=== PATIENT | male | born 1985 | race Caucasian/White ===

== ENCOUNTER → 2018-12-29 | Outpatient (CLI) | payer BC, OTHER ==
[~2018-12-29] VITALS: Ht 177.8 cm; Wt 111.1 kg
[~2018-12-29] MED LIST: FLEXERIL PO; IBUPROFEN 800800 M1 PO; METHOCARBAMOL500 M2 PO; NORCO 7.5-3251 EACH PO
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
[2018-12-29 09:09] VITALS: BP 138/86
--- NOTE | 2018-12-29 09:24 | NUR ---
Pain Clinic Assessment: 1. History of Osteoarthritis: Not Applicable History of Rheumatoid Arthritis: Not Applicable 2. Height: 5 ft. 10 in. 177.8 cm. Weight: 245.0 lb. oz. 111.132 kg. Patient's BMI: 35.2 3. Vital Signs: BP: 138/86 Pulse: 61 Resp: 16 Temp: 02 Sat: 100 ECG Mon: 4. Pain Intensity: 4 5. Fall Risk: Dizziness: N Needs help standing or walking: N Fallen in the last 3 months: N Fall risk comments: 6. Patient on Blood Thinner: None 7. History of Hypertension: N 8. Opioid Therapy greater than 6 weeks: N Opiate Contract Signed: 9. Risk Assessment Tool Provided: 0-low 10. Functional Assessment Tool: 11. Recreational Drug Use: Never Drug Type: Tobacco Use: Never Smoker Tobacco Type: Amount or Packs/day: How Many Years: Alcohol Use: Yes Frequency: Daily Quant: 2 BEERS
--- NOTE | 2018-12-29 09:24 | NUR ---
ALERT - Henrik Score <= 18: Add Problem PRESSURE ULCER RISK to Patient's Care Plan
== END ==
LOC: PAIN 06:35
DX: M47.27 Other spondylosis with radiculopathy, lumbosacral region (principal); M51.16 Intervertebral disc disorders with radiculopathy, lumbar region; Z79.899 Other long term (current) drug therapy

== ENCOUNTER → 2018-12-31 | Outpatient (CLI) | payer BC, OTHER ==
[~2018-12-31] VITALS: Ht 177.8 cm; Wt 80.3 kg
[2018-12-31 08:31] VITALS: BP 121/71
--- NOTE | 2018-12-31 08:52 | NUR ---
Pain Clinic Assessment: 1. History of Osteoarthritis: Not Applicable History of Rheumatoid Arthritis: Not Applicable 2. Height: 5 ft. 10 in. 177.8 cm. Weight: 177.0 lb. oz. 80.287 kg. Patient's BMI: 25.4 3. Vital Signs: BP: 121/71 Pulse: 74 Resp: 16 Temp: 02 Sat: 100 ECG Mon: 4. Pain Intensity: 4-5 5. Fall Risk: Dizziness: N Needs help standing or walking: N Fallen in the last 3 months: N Fall risk comments: 6. Patient on Blood Thinner: None 7. History of Hypertension: N 8. Opioid Therapy greater than 6 weeks: N Opiate Contract Signed: 9. Risk Assessment Tool Provided: 0-low 10. Functional Assessment Tool: 11. Recreational Drug Use: Never Drug Type: Tobacco Use: Never Smoker Tobacco Type: Amount or Packs/day: How Many Years: Alcohol Use: Yes Frequency: Quant:
--- NOTE | 2019-01-06 12:15 | HPC ---
[address] [address] PAIN MANAGEMENT CONSULTATION Name: MIRTHA MINOR Room #: REG [facility]..#: [id number] Admission: 12/31/18 ������������������ Attend Phys: Talon Gomez DO Discharge: ������������������ Date of : [birth year] Report #: [id number] THIS REPORT FOR: //name// CC: Chas Gomez DATE OF SERVICE: 12/31/2018 CHIEF COMPLAINT: Low back pain, bilateral lower extremity pain with paresthesias. HISTORY OF PRESENT ILLNESS: As you know, the patient is a 33-year-old male who returns today in followup visit to undergo the first in a series of lumbar epidural injections under fluoroscopic guidance. We saw the patient in consultation on 12/29/2018. He was diagnosed with lumbar radiculopathy secondary to the displacement of lumbar intervertebral disk and lumbosacral spondylosis causing changes at the L5-S1 level significant enough that the patient had been referred to our clinic to trial epidural injections. We have received authorization for the patient to undergo the procedure today. He has been advised of the risks and the benefits of the procedure. He states he understood and wished to proceed. The patient is placing his current pain score 6/10. He returns today in followup visit to undergo first in a series of lumbar epidural injections. ALLERGIES: No known drug allergies. CURRENT MEDICATIONS: Hydrocodone/acetaminophen 7.5/325 one tab every eight hours p.r.n. for pain, methocarbamol 750 mg three times a day p.r.n., ibuprofen 800 mg three times a day. SOCIAL HISTORY: The patient denies current tobacco use. Denies IV or illicit drug use. Admits to two alcohol beverages per day. 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 He is working, not receiving workmen's compensation, unaccompanied today. IMAGING: No new imaging available. PHYSICAL EXAMINATION: GENERAL: Well-developed, well-nourished, well-hydrated 33-year-old male appearing stated age, pain is rated around 6/10. HEENT: Normocephalic, atraumatic. Pupils equal, round, reactive to light. EXTREMITIES: Show no clubbing, no cyanosis, and no edema. MUSCULOSKELETAL: Lower extremity strength is symmetrical 5/5. He is intact to light touch from L1 through S2 dermatomes. Seated straight leg raising negative. Supine straight leg raising positive on the right, approximately 70 degrees. Ankle clonus negative. Babinski is negative. Deep tendon reflexes [address] [address] PAIN MANAGEMENT CONSULTATION Name: MIRTHA MINOR Room #: REG [facility].#: [id number] Admission: 12/31/18 ������������������ Attend Phys: Talon Gomez DO Discharge: ������������������ Date of : [birth year] Report #: [id number] are symmetrical. ASSESSMENT: 1. Symptomatic lumbar radiculopathy. 2. Displacement of lumbar intervertebral disk with radiculopathy. 3. Lumbosacral spondylosis with radiculopathy. PLAN: 1. The patient returns today in followup visit to undergo lumbar epidural injection under fluoroscopic guidance. The patient has been advised risks and benefits of this procedure. These risks include but are not necessarily limited to bleeding, bruising, infection, worsening of pain, no relief of pain, also risk of temporary or permanent muscle weakness, temporary or permanent nerve damage, possible paralysis, post-dural puncture headache and . The patient states he understood and wished to proceed. 2. No medication changes made at today's visit. The patient will continue current medical therapy as previously prescribed. 3. We will see the patient back in followup visit in 31 days. At that time, review the efficacy of today's epidural injection and determine if next in the series of epidural injections are recommended. ��������������������������������������������� <ELECTRONICALLY SIGNED> ���������������������������������������� By: Talon Gomez DO ��������������������������������������������� 01/06/19 1215 0857 1227 Talon Gomez DO /nt
--- NOTE | 2019-01-06 12:16 | P ---
[facility] [place] [address] [address] [place] [address] PROCEDURE REPORT Name: MIRTHA MINOR Room #: REG [facility]#: [id number] Admission: 12/31/18 ������������������ Attend Phys: Talon Gomez DO Discharge: ������������������ Date of : [birth year] Report #: [id number] THIS REPORT FOR: //name// CC: Chas Gomez DATE OF SERVICE: 12/31/2018 DESCRIPTION OF PROCEDURE: L5-S1 interlaminar epidural steroid injection under fluoroscopic guidance. This is the first procedure of the first series that the patient is undergoing. After obtaining written consent, the patient was taken back to the fluoroscopy suite, placed in a prone position with pillow under the abdomen to decrease lumbar lordosis. The skin overlying the lumbosacral area was then prepped and draped in aseptic fashion. The L5-S1 vertebral interspace was then identified by AP fluoroscopy. The skin and subcutaneous tissue overlying the target site of injection was anesthetized with 3 mL 1% lidocaine. A 20-gauge 3-1/2-inch Tuohy needle was then advanced under fluoroscopic guidance towards the epidural space using a midline approach. The epidural space was identified using loss of resistance to air technique. After negative aspiration for heme or cerebrospinal fluid, a total of 1 mL of Omnipaque was injected. A lumbar epidurogram was confirmed using both AP and lateral fluoroscopy. After negative aspiration for heme or cerebrospinal fluid, 5 mL of a solution containing 2 mL 40 mg per mL, 80 mg total triamcinolone, 3 mL lidocaine 1% was injected in increments. Contrast spread was noted posterior epidural space. The needle was then retracted approximately half way and needle tract flushed with 1 mL of 1% lidocaine. Needle was then removed. There were no apparent sensory or motor deficits in the lower extremity following the procedure. A sterile bandage was placed over the injection site. The heart rate, pulse, oximetry and blood pressure were continuously monitored after the procedure. There were no apparent complications. The patient tolerated the procedure well and was carefully escorted to the recovery room in stable condition. There were no apparent complications. After meeting discharge criteria, the patient was then discharged home. ��������������������������������������������� <ELECTRONICALLY SIGNED> ���������������������������������������� By: Talon Gomez DO ��������������������������������������������� 01/06/19 1216 0857 1232 Talon Gomez DO /nt
== END | disposition home or self-care (01) ==
LOC: PAIN 06:41
DX: M51.16 Intervertebral disc disorders with radiculopathy, lumbar region (principal); M47.27 Other spondylosis with radiculopathy, lumbosacral region; Z79.899 Other long term (current) drug therapy

== ENCOUNTER → 2019-01-12 | Outpatient (CLI) | payer BC, OTHER ==
[~2019-01-12] VITALS: Ht 175.3 cm; Wt 110.7 kg
[~2019-01-12] MED LIST changes: +NABUMETONE 500500 M1 PO
[2019-01-12 08:08] VITALS: BP 168/83
--- NOTE | 2019-01-12 08:10 | NUR ---
Pain Clinic Assessment: 1. History of Osteoarthritis: Not Applicable History of Rheumatoid Arthritis: Not Applicable 2. Height: 5 ft. 9 in. 175.3 cm. Weight: 244.0 lb. oz. 110.678 kg. Patient's BMI: 36.0 3. Vital Signs: BP: 168/83 Pulse: 66 Resp: 18 Temp: 02 Sat: 98 ECG Mon: 4. Pain Intensity: 3-4 5. Fall Risk: Dizziness: N Needs help standing or walking: N Fallen in the last 3 months: N Fall risk comments: 6. Patient on Blood Thinner: None 7. History of Hypertension: N 8. Opioid Therapy greater than 6 weeks: N Opiate Contract Signed: 9. Risk Assessment Tool Provided: 0-low 10. Functional Assessment Tool: 11. Recreational Drug Use: Never Drug Type: Tobacco Use: Never Smoker Tobacco Type: Amount or Packs/day: How Many Years: Alcohol Use: Yes Frequency: Daily Quant: 2
--- NOTE | 2019-01-19 13:03 | HPC ---
[facility] [place] [address] PAIN MANAGEMENT CONSULTATION Name: MINORMIRTHA Room #: REG [facility].#: [id number] Admission: 01/12/19 ������������������ Attend Phys: Talon Gomez DO Discharge: ������������������ Date of : 87 Report #: [id number] THIS REPORT FOR: //name// CC: Chas Martini DATE OF SERVICE: 01/12/2019 REFERRING PHYSICIAN: Chas Sullivan DO. CHIEF COMPLAINT: Low back pain, bilateral lower extremity pain and paresthesias. HISTORY OF PRESENT ILLNESS: As you know, the patient is a very pleasant 33-year-old male who returns today in followup visit having undergone the first in a series of lumbar epidural injections under fluoroscopic guidance. He is placing pain score today at 3-4/10. He reports 40% to 50% improvement in overall pain that was ongoing after the previous epidural injection. He continues to experience discomfort that he describes as aching, sharp, pulling in sensation, exacerbated with sitting and improves with lying down and previous epidural injection. He has undergone imaging study which does show a grade 1 anterolisthesis at L5-S1, with no central canal stenosis. There is a circumferential annular disk bulge, annular tear and foraminal narrowing noted at this level. He did very well with the initial epidural injection, returning today in followup visit to discuss the possible next in the series of epidural injections. The patient has an established appointment to potentially undergo the next in the series of epidural injections per his third libertarian payer request 31 days from the initial epidural injection provided 12/31/2018. He is planning to undergo the epidural injection at that 31-day jaleesa, which is the earliest the patient can undergo next in the series. He returns today for possible adjustments in medication management. ALLERGIES: No known drug allergies. CURRENT MEDICATIONS: Methocarbamol 500 mg 3 times a day and ibuprofen 800 mg t.i.d. SOCIAL HISTORY: The patient denies current tobacco use. Denies IV or illicit drug use. Admits to occasional alcoholic beverage. 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 IMAGING DATA: No new imaging available. [address] [address] PAIN MANAGEMENT CONSULTATION Name: MIRTHA MINOR Room #: REG [facility].#: [id number] Admission: 01/12/19 ������������������ Attend Phys: Talon Gomez DO Discharge: ������������������ Date of : [birth year] Report #: [id number] PHYSICAL EXAMINATION: VITAL SIGNS: Blood pressure 160/83, pulse 66, respiratory rate 18 and unlabored. The patient is 98% on room air. Height 5 feet 9 inches tall, weight 244 pounds and BMI calculated 36. GENERAL: Well-developed, well-nourished, well-hydrated and exogenously obese 33-year-old male appearing stated age, pain is rated today at 3-4/10. HEENT: He is normocephalic, atraumatic. Pupils equal, round and reactive to light. Extraocular muscles are intact. EXTREMITIES: Show no clubbing, no cyanosis and no edema. MUSCULOSKELETAL: Lower extremity strength appears symmetrical, 5/5. Muscle bulk and tone equal and symmetrical. Seated straight leg raising negative. Supine straight leg raising remains positive on the right at approximately 70 degrees. Ankle clonus negative. Babinski is negative. Deep tendon reflexes remain symmetrical, 2+/4 patella and Achilles. The patient is able to sit today without difficulty. This was not possible at the last visit. Arising from a seated position causes no change in overall pain. ASSESSMENT: 1. Symptomatic lumbar radiculopathy. 2. Displacement of lumbar intervertebral disk with radiculopathy. 3. Lumbosacral spondylosis with radiculopathy. PLAN: 1. The patient returns today in followup visit indicating a 40% to 50% improvement in overall pain with previous epidural injection. He has ongoing pain relief. He has been able to participate in more of these daily activities than prior to the injection. He is now able to sit more comfortably, which he was unable to do prior to the epidural injection. He has also been able to participate in work activities to a greater degree, which he was unable to do prior to the injection. He is pleased with response to this injection, returning today to discuss scheduling the next in the series of epidural injections. I have advised the patient that due to third libertarian payer restrictions, he cannot undergo next in the series of epidural injections until 31 days or greater have passed and he shows continued improvement with the injection. He will make an appointment back with our clinic in approximately 31 days after the initial injection of 12/31/2018 to undergo next in the series. 2. The patient and I discussed making changes in medication management today to address ongoing issues. He is having some difficulty with his ibuprofen therapy and we will make adjustments in that medication in hopes of providing better pain control. We also discussed initiation of neuropathic medications at this visit. 3. The patient was provided a prescription of nabumetone 500 mg dose, 1 tab p.o. t.i.d. I advised the patient to watch for dyspepsia, worsening of blood pressure or lower extremity edema with the use of the therapy. He will discontinue all other nonsteroidal anti-inflammatories in favor of this medication. He can use Tylenol if necessary for breakthrough pain. [facility] [address] [place] [address] PAIN MANAGEMENT CONSULTATION Name: MIRTHA MINOR Room #: REG [facility]#: [id number] Admission: 01/12/19 ������������������ Attend Phys: Talon Gomez DO Discharge: ������������������ Date of : 87 Report #: [id number] 4. We discussed possibly initiating therapy with neuropathic pain medications, gabapentin, nortriptyline, amitriptyline, Lyrica, Cymbalta, and/or the sodium channel blockers. At this point, the patient does not want to initiate any long-term medication therapy. He wishes to determine if the injection will provide good improvement. He feels that if he continues to participate in light activities at work, which he is able to do at this time, he maintains the efficacy from the initial injection and the medications provide some improvement, he should do well enough to reach the 31-day jaleesa. I have advised the patient if this is not the case, contact our clinic. 5. We will see the patient back in followup visit once we have achieved authorization for the next in the series of lumbar epidural injections. We have made the patient a tentative appointment to follow up with our clinic for the next in the series of epidural injections after a 31-day jaleesa to address potential ongoing lumbar radicular symptoms. ��������������������������������������������� <ELECTRONICALLY SIGNED> ���������������������������������������� By: Talon Gomez DO ��������������������������������������������� 01/19/19 1303 [id number] Talon Gomez DO /sherry
== END ==
LOC: PAIN 06:42
DX: M51.16 Intervertebral disc disorders with radiculopathy, lumbar region (principal); M47.27 Other spondylosis with radiculopathy, lumbosacral region; Z79.899 Other long term (current) drug therapy

== ENCOUNTER → 2019-02-02 | Outpatient (CLI) | payer BC, OTHER ==
[~2019-02-02] VITALS: Ht 175.3 cm; Wt 111.6 kg
[~2019-02-02] MED LIST changes: +HYDROCODON-ACE1 EAC7 PO
--- NOTE | ~2019-02-02 | HPC ---
[facility] [place] [address] PAIN MANAGEMENT CONSULTATION Name: MIRTHA MINOR [id number] Admission: 02/02/19 ������������������ Attend Phys: Talon Gomez DO Discharge: ������������������ Date of : 87 Report #: [id number] THIS REPORT FOR: //name// CC: Chas Martini DATE OF SERVICE: 02/02/2019 REFERRING PHYSICIAN: Talon Hicks D.O. PRIMARY CARE PHYSICIAN: Chas Sullivan D.O. CHIEF COMPLAINT: Low back pain and bilateral lower extremity pain with paresthesias. HISTORY OF PRESENT ILLNESS: As you know, the patient is a pleasant 33-year-old male who follows up today at our clinic requesting next in a series of lumbar epidural injections. He reports now that his pain has returned to its normal baseline. He is now placing pain score 3-4/10. He states his pain is aching, sharp and pulling exacerbated with standing, walking, improves with lying down, heat and medications as well as epidural injections. He returns today to undergo next in the series of lumbar epidural injections in hopes of building on success of previous intervention. He also wishes to discuss other options for treatment. We have received authorization for the patient to undergo next in the series of epidural injections and thus he has returned today to undergo this procedure. ALLERGIES: No known drug allergies. CURRENT MEDICATIONS: Methocarbamol 500 mg t.i.d. and Motrin 800 mg t.i.d. SOCIAL HISTORY: The patient denies current tobacco use. Denies IV or illicit drug use. Admits to occasional alcohol, beverage. 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 He is unaccompanied today. IMAGING DATA: There is no new imaging available. PHYSICAL EXAMINATION: VITAL SIGNS: Blood pressure 143/85, pulse is 67, respiratory rate 16 and unlabored and the patient 99% on room air. Height 5 feet 9 inches tall, weight 246 pounds and BMI calculated 36.3. GENERAL: Well-developed, well-nourished, well-hydrated exogenously obese 33-year-old male appearing stated age, pain is rated around 3-4/10. HEENT: Normocephalic and atraumatic. Pupils equal, round and reactive to [facility] [address] [place] [address] PAIN MANAGEMENT CONSULTATION Name: MIRTHA MINOR Room #: REG [facility].#: [id number] Admission: 02/02/19 ������������������ Attend Phys: Talon Gomez DO Discharge: ������������������ Date of : 87 Report #: [id number] light. EXTREMITIES: Show no clubbing, no cyanosis and no edema. MUSCULOSKELETAL: Lower extremity strength is equal and symmetrical 5/5. Muscle bulk and tone equal and symmetrical in comparing left lower extremity to right. Seated straight leg raising negative. Supine straight leg raising positive on the right. Dulce Maria's test negative. Modified Gaenslen's positive for axial low back pain. ASSESSMENT: 1. Symptomatic lumbar radiculopathy. 2. Displacement of a lumbar intervertebral disk with radiculopathy. 3. Lumbosacral spondylosis with radiculopathy. PLAN: 1. The patient returns today in followup visit to undergo next in the series of lumbar epidural injections under fluoroscopic guidance. The patient is hopeful to see improvement in his pain as he is seen with the initial injection but for a more prolonged period of time. The patient was advised risks and benefits of procedure, states understood and wished to proceed. 2. No medication changes made at today's visit. We did provide the patient with a short dosing of hydrocodone 5/325 one tab p.o. q. 8 hours p.r.n. for pain, #60 tablets. We have advised the patient to only take the medication when pain is intolerable, not to rely on the medication prophylactically. This prescription is a temporizing treatment option is not going to be a long-term therapy. We will not be keeping this patient on long-term opioid medication as it is noted to be ineffective for long-term treatment for neuropathic pain secondary to lumbar radiculopathy. He was advised of such today. 3. The patient will return to our clinic on an as needed basis for possible next in a series of lumbar epidural injections. If the patient does not note improvement with this epidural injection for a prolonged period of time, he will follow up with his PCP for possible referral to Neurosurgery. DESCRIPTION OF PROCEDURE: L5-S1 intralaminar epidural steroid injection under fluoroscopic guidance. This is the second procedure of the first series that the patient is undergoing. After obtaining written consent, the patient was taken back to the fluoroscopy suite, placed in a prone position with pillow under the abdomen to decrease lumbar lordosis. The skin overlying the lumbosacral area was then prepped and draped in aseptic fashion. The L5-S1 vertebral interspace was then identified by AP fluoroscopy. The skin and subcutaneous tissue overlying the target site of injection was anesthetized with 3 mL 1% lidocaine. A 20-gauge 3-1/2 inch Tuohy needle was then advanced under fluoroscopic guidance towards the epidural space using a midline approach. The epidural space was [address] [address] PAIN MANAGEMENT CONSULTATION Name: MIRTHA MINOR Room #: REG [facility]#: [id number] Admission: 02/02/19 ������������������ Attend Phys: Talon Gomez DO Discharge: ������������������ Date of : 87 Report #: [id number] identified using loss of resistance to air technique. After negative aspiration for heme or cerebrospinal fluid, a total of 1 mL of Omnipaque was injected. A lumbar epidurogram was confirmed using both AP and lateral fluoroscopy. After negative aspiration for heme or cerebrospinal fluid, 5 mL of a solution containing 2 mL 40 mg per mL, 80 mg total triamcinolone, 3 mL lidocaine 1% was injected in increments. Contrast spread was noted posterior epidural space. The needle was then retracted approximately half way and needle tract flushed with 1 mL of 1% lidocaine. Needle was then removed. There were no apparent sensory or motor deficits in the lower extremity following the procedure. A sterile bandage was placed over the injection site. The heart rate, pulse, oximetry and blood pressure were continuously monitored after the procedure. There were no apparent complications. The patient tolerated the procedure well and was carefully escorted to the recovery room in stable condition. There were no apparent complications. After meeting discharge criteria, the patient was then discharged home. ��������������������������������������������� ���������������������������������������� By: ��������������������������������������������� [id number] Talon Gomez DO /nt
[2019-02-02 08:06] VITALS: BP 143/85
--- NOTE | 2019-02-02 08:12 | NUR ---
Pain Clinic Assessment: 1. History of Osteoarthritis: Not Applicable History of Rheumatoid Arthritis: Not Applicable 2. Height: 5 ft. 9 in. 175.3 cm. Weight: 246.0 lb. oz. 111.585 kg. Patient's BMI: 36.3 3. Vital Signs: BP: 143/85 Pulse: 67 Resp: 16 Temp: 02 Sat: 99 ECG Mon: 4. Pain Intensity: 3-4 5. Fall Risk: Dizziness: N Needs help standing or walking: N Fallen in the last 3 months: N Fall risk comments: 6. Patient on Blood Thinner: None 7. History of Hypertension: N 8. Opioid Therapy greater than 6 weeks: N Opiate Contract Signed: 9. Risk Assessment Tool Provided: 0-low 10. Functional Assessment Tool: 11. Recreational Drug Use: Never Drug Type: Tobacco Use: Never Smoker Tobacco Type: Amount or Packs/day: How Many Years: Alcohol Use: Yes Frequency: Daily Quant: 2-3
== END | disposition home or self-care (01) ==
LOC: PAIN 07:47
DX: M51.16 Intervertebral disc disorders with radiculopathy, lumbar region (principal); G89.29 Other chronic pain; M47.27 Other spondylosis with radiculopathy, lumbosacral region; Z79.891 Long term (current) use of opiate analgesic

== ENCOUNTER → 2019-03-09 | Outpatient (CLI) | payer BC, OTHER ==
[~2019-03-09] VITALS: Ht 177.8 cm; Wt 110.5 kg
[2019-03-09 08:12] VITALS: BP 136/81
--- NOTE | 2019-03-09 08:21 | NUR ---
Pain Clinic Assessment: 1. History of Osteoarthritis: Not Applicable History of Rheumatoid Arthritis: Not Applicable 2. Height: 5 ft. 10 in. 177.8 cm. Weight: 243.6 lb. oz. 110.496 kg. Patient's BMI: 35.0 3. Vital Signs: BP: 136/81 Pulse: 70 Resp: 16 Temp: 02 Sat: 100 ECG Mon: 4. Pain Intensity: 5-6 5. Fall Risk: Dizziness: N Needs help standing or walking: N Fallen in the last 3 months: N Fall risk comments: 6. Patient on Blood Thinner: None 7. History of Hypertension: N 8. Opioid Therapy greater than 6 weeks: N Opiate Contract Signed: 9. Risk Assessment Tool Provided: 0-low 10. Functional Assessment Tool: 11. Recreational Drug Use: Never Drug Type: Tobacco Use: Never Smoker Tobacco Type: Amount or Packs/day: How Many Years: Alcohol Use: Yes Frequency: Quant:
--- NOTE | 2019-03-09 12:28 | HPC ---
[facility] [place] [address] PAIN MANAGEMENT CONSULTATION Name: MIRTHA MINOR Room #: REG [facility] MCarina.#: [id number] Admission: 03/09/19 Attend Phys: Talon Gomez DO Discharge: Date of : 87 Report #: [id number] THIS REPORT FOR: //name// CC: Talon Martini DATE OF SERVICE: 03/09/2019 CHIEF COMPLAINT: Low back pain, bilateral lower extremity pain with paresthesias. HISTORY OF PRESENT ILLNESS: As you know, the patient is a very pleasant 33-year-old male returning in followup visit to undergo next in the series of lumbar epidural injections under fluoroscopic guidance. The patient reports 50% improvement in overall pain with previous epidural injection, but unfortunately his symptoms have begun to return now. He is placing pain score at 5-6/10. The patient denies any new injury or trauma that may have led to symptom reoccurrence. He states that he has been able to return to some of the activities of daily living, but his pain has intensified with those activities. He returns to undergo next in the series of epidural injections. He also reports that he has an appointment with Neurosurgery on 04/07/2019 to discuss surgical options to address the findings at the L5-S1 level, likely the source of the patient's symptoms based on the recent studies and distribution of pain. The patient returns to undergo next in the series of lumbar epidural injections. He is also requesting refill of his medications for which he is taking no more than 2 tablets of hydrocodone per day for pain control, unrelieved by the epidurals. ALLERGIES: No known drug allergies. CURRENT MEDICATIONS: Ibuprofen 800 mg t.i.d., hydrocodone 5/325 one tab p.o. q. 8 hours p.r.n. for pain. SOCIAL HISTORY: The patient denies current tobacco use. Denies IV or illicit drug use. Admits occasional alcohol beverage. He is employed, working, not receiving workmen's compensation, unaccompanied today. IMAGING: No new imaging available. PHYSICAL EXAMINATION: VITAL SIGNS: Blood pressure 136/81, pulse 70, respiratory rate 16 and unlabored. The patient is 100% on room air. Height 5 feet 10 inches tall, weight 243.6 pounds, BMI calculated at 35.0. GENERAL: Well-developed, well-nourished, well-hydrated exogenously obese 33-year-old male appearing stated age, pain is rated today at 5-6/10. [address] [address] PAIN MANAGEMENT CONSULTATION Name: MIRTHA MINOR Room #: [facility].#: [id number] Admission: 03/09/19 Attend Phys: Talon Gomez DO Discharge: Date of : 86 Report #: [id number] HEENT: Normocephalic, atraumatic. Pupils equal, round, reactive to light. Extraocular muscles are intact. EXTREMITIES: Show no clubbing, no cyanosis, and no edema. MUSCULOSKELETAL: Lower extremity strength is symmetrical again today 5/5. Muscle bulk and tone is equal and symmetrical in comparing left lower extremity to right. Seated straight leg raising remains negative. Supine straight leg raising positive. Dulce Maria's test negative. Modified Gaenslen's positive for axial low back pain. Lumbar provocation testing is met with increasing pain that is axial in nature. No radiation of symptoms. Gait mildly antalgic. Stance is slightly forward flexed lumbar spine, loss of lordotic curvature. Ankle clonus negative. Babinski is negative. ASSESSMENT: 1. Symptomatic lumbar radiculopathy. 2. Displacement of lumbar intervertebral disk with radiculopathy. 3. Lumbosacral spondylosis with radiculopathy. 4. Chronic intractable pain. PLAN: 1. The patient returns today in followup visit to undergo a lumbar epidural injection under fluoroscopic guidance in hopes of improving pain further. The patient has been advised of the risks and the benefits of a lumbar epidural injection. These risks include but are not necessarily limited to bleeding, bruising, infection, worsening pain, no relief of pain, also risk of temporary or permanent muscle weakness, temporary or permanent nerve damage, possible paralysis, post-dural puncture headache and . The patient states understood and wished to proceed. 2. We reviewed the fact that opiate medications are being used to provide analgesia adequate to support activities of daily living, not attempting to achieve a specific pain score on the 0-10 Visual Analog Scale. The current opiate medications are providing sufficient analgesia to allow the patient to participate in activities of daily living. The patient is not exhibiting any aberrant behavior suggestive of drug diversion. The patient is not having any adverse reactions to medications. The patient is not suffering from daytime somnolence or mental acuity changes. The patient is managing opiate-induced constipation with appropriate bcax-fxh-ghjsyeu agents and dietary considerations. The patient was counseled on concern for caution with operating a motor vehicle while using opiate medications. A physical exam was performed and the patient's functional status was evaluated. All patients with back pain were advised against the bed rest greater than 4 days and were advised to return to normal activities. Pain score assessment was noted and the treatment plan was reviewed with the patient. All current medications, both prescribed and OTC were reviewed and reconciled on the electronic medical record. Tobacco screening was accomplished and smoking cessation was advised when indicated. BMI was noted and diet/exercise [facility] [address] [place] [address] PAIN MANAGEMENT CONSULTATION Name: MIRTHA MINOR Room #: REG LE[facility] Ana.#: [id number] Admission: 03/09/19 Attend Phys: Talon Gomez DO Discharge: Date of : 86 Report #: [id number] modification was recommended for all patients following outside normal parameters. I reviewed with the patient today their responsibilities to safeguard prescription medications, reviewed their responsibility to utilize medications only as prescribed by the physician. They are to seek and receive pain medications only from 1 physician group ( [facility]). They are to use 1 pharmacy and keep the clinic informed if they change pharmacies. Their responsibilities include making followup visits in a timely fashion and to avoid abrupt discontinuation of medication usage. Their responsibilities further include bringing their medications (bottles from the pharmacy with residual pills) to the visit for possible confirmation of pill counts and the patient understands it is their responsibility to submit to random drug screens to ensure both that the medications prescribed are present, and that no other controlled substances are present. All prescriptions provided today were generated electronically. 3. The patient was provided a prescription of hydrocodone 5/325 one tab p.o. q. 8 hours p.r.n. for pain. I have given the patient #60 tablets with no refills. The patient was advised to take the medication only as directed. He is not to take the medication prophylactically. He has been utilizing the medication over the last month in an appropriate fashion. He does not run low with the medications nor is he called for early refills. He appears to be utilizing medication as directed. 4. We will see the patient back in followup visit on an as needed basis for possible next in the series of epidural injections or to discuss other treatment options. We did advise the patient would be more than willing to discuss his case further with Neurosurgery if they request any further treatment considerations. We will see him back in followup visit for medication management when necessary and epidural injections when needed. PROCEDURE NOTE DESCRIPTION OF PROCEDURE: L5-S1 interlaminar epidural steroid injection under fluoroscopic guidance. This is the third procedure of the first series that the patient is undergoing. After obtaining written consent, the patient was taken back to the fluoroscopy suite, placed in a prone position with pillow under the abdomen to decrease lumbar lordosis. The skin overlying the lumbosacral area was then prepped and draped in aseptic fashion. The L5-S1 vertebral interspace was then identified by AP fluoroscopy. The skin and subcutaneous tissue overlying the target site of injection was anesthetized with 3 mL 1% lidocaine. A 20-gauge 3-1/2 inch Tuohy needle was then advanced [place] [address] PAIN MANAGEMENT CONSULTATION Name: MIRTHA MINOR Room #: REG LEA Piper#: [id number] Admission: 03/09/19 Attend Phys: Talon Gomez DO Discharge: Date of : 86 Report #: [id number] towards the epidural space using a paramedian approach. The epidural space was identified using loss of resistance to air technique. After negative aspiration for heme or cerebrospinal fluid, a total of 1 mL of Omnipaque was injected. A lumbar epidurogram was confirmed using both AP and lateral fluoroscopy. After negative aspiration for heme or cerebrospinal fluid, 5 mL of a solution containing 1 mL, 80 mg/mL, 80 mg Depo-Medrol, 1 mL of 40 mg/mL, 40 mg total triamcinolone and 3 mL of lidocaine 1% was injected in increments. Contrast spread was noted posterior epidural space. The needle was then retracted approximately half way and needle tract flushed with 1 mL of 1% lidocaine. Needle was then removed. There were no apparent sensory or motor deficits in the lower extremity following the procedure. A sterile bandage was placed over the injection site. The heart rate, pulse, oximetry and blood pressure were continuously monitored after the procedure. There were no apparent complications. The patient tolerated the procedure well and was carefully escorted to the recovery room in stable condition. There were no apparent complications. After meeting discharge criteria, the patient was then discharged home. <ELECTRONICALLY SIGNED> By: Talon Gomez DO 03/09/19 1228 [id number] 1112 Talon Gomez DO /nt
== END | disposition home or self-care (01) ==
LOC: PAIN 06:45
DX: M51.16 Intervertebral disc disorders with radiculopathy, lumbar region (principal); M47.27 Other spondylosis with radiculopathy, lumbosacral region; G89.29 Other chronic pain; Z79.891 Long term (current) use of opiate analgesic; Z98.890 Other specified postprocedural states; Z79.899 Other long term (current) drug therapy

== ENCOUNTER → 2019-05-18 | Outpatient (CLI) | payer BC, OTHER ==
[~2019-05-18] VITALS: Ht 175.3 cm; Wt 109.8 kg
[~2019-05-18] MED LIST changes: +BUPRENORPHINE HC2 MG PO; +ROXICODONE5 MG PO
[2019-05-18 08:12] VITALS: BP 134/84
--- NOTE | 2019-05-18 08:24 | NUR ---
Pain Clinic Assessment: 1. History of Osteoarthritis: Not Applicable History of Rheumatoid Arthritis: Not Applicable 2. Height: 5 ft. 9 in. 175.3 cm. Weight: 242.0 lb. oz. 109.771 kg. Patient's BMI: 35.7 3. Vital Signs: BP: 134/84 Pulse: 76 Resp: 16 Temp: 02 Sat: 100 ECG Mon: 4. Pain Intensity: 5-6 5. Fall Risk: Dizziness: N Needs help standing or walking: N Fallen in the last 3 months: Y Fall risk comments: 6. Patient on Blood Thinner: None 7. History of Hypertension: N 8. Opioid Therapy greater than 6 weeks: N Opiate Contract Signed: 9. Risk Assessment Tool Provided: 0-low 10. Functional Assessment Tool: 11. Recreational Drug Use: Never Drug Type: Tobacco Use: Never Smoker Tobacco Type: Amount or Packs/day: How Many Years: Alcohol Use: Yes Frequency: Quant:
--- NOTE | 2019-05-25 12:48 | HPC ---
[facility] [place] [address] PAIN MANAGEMENT CONSULTATION Name: MIRTHA MINOR Room #: REG [facility]..#: [id number] Admission: 05/18/19 Attend Phys: Talon Gomez DO Discharge: Date of : 86 Report #: [id number] THIS REPORT FOR: //name// CC: Chas Nate DO Talon Hicks DO Talon Goemz DATE OF SERVICE: 05/18/2019 REFERRING PHYSICIAN: Dr. Talon Hicks CHIEF COMPLAINT: Low back pain, bilateral lower extremity pain and paresthesias, left greater than right. HISTORY OF PRESENT ILLNESS: As you know, the patient is a pleasant 33-year-old male who returns today in followup visit to discuss treatment options. He recently saw nurse practitioner, Jo Ann Perez at [facility] for his lumbar radiculopathy. He was referred back to our clinic to discuss intra-articular facet injections for axial back pain. The patient indicates he is not experiencing any axial back pain. He is experiencing pain that is radiating down his leg, making it impossible for him to go about his activities of daily living. He has undergone epidural injections under fluoroscopic guidance x 3 with improvement in symptoms with each injection, but unfortunately return of pain. He returns to discuss options for treatment. ALLERGIES: No known drug allergies. CURRENT MEDICATIONS: Hydrocodone 5/325 one tab every 8 hours p.r.n. for pain. SOCIAL HISTORY: The patient denies tobacco, IV or illicit drug use. He is . He has 2 children. 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 He is unaccompanied at today's visit. IMAGING: No new imaging available. PHYSICAL EXAMINATION: VITAL SIGNS: Blood pressure 134/84, pulse 76, respiratory rate 16 and unlabored. The patient is 100% on room air. Height 5 feet 9 inches tall, weight 242 pounds, BMI calculated 35.7. GENERAL: Well-developed, well-nourished, well-hydrated 33-year-old male appearing stated age, pain is rated today 5-6/10. HEENT: Normocephalic, atraumatic. Pupils equal, round, reactive to light. Extraocular muscles are intact. Sclerae nonicteric without injection. NEUROLOGIC: Cranial nerves 2-12 grossly intact. Speech fluent. The patient deemed a good historian. [address] [address] PAIN MANAGEMENT CONSULTATION Name: MIRTHA MINOR Room #: REG CLI [facility]#: [id number] Admission: 05/18/19 Attend Phys: Talon Gomez DO Discharge: Date of : 86 Report #: [id number] LUNGS: Clear, no wheeze, rhonchi or rales. CARDIOVASCULAR: Regular. No appreciable gallop, no rub. ABDOMEN: Soft, nontender, nondistended, normoactive bowel sounds. EXTREMITIES: Show no clubbing, no cyanosis, no edema. MUSCULOSKELETAL: Lower extremity strength is symmetrical 5/5, intact to light touch from L1 through S2 dermatomes. Deep tendon reflexes are symmetrical, 2+/4 bilaterally at patella and Achilles. Ankle clonus negative. Babinski is negative. Seated straight leg raising is negative. Supine straight leg raising remains positive on the right. Dulce Maria's test negative. Modified Gaenslen's positive for axial low back pain. ASSESSMENT: 1. Symptomatic lumbar radiculopathy. 2. Displacement of a lumbar intervertebral disk with radiculopathy. 3. Lumbosacral spondylosis with radiculopathy. 4. Chronic intractable pain. PLAN: 1. The patient returns today in followup visit to discuss the re-referral back to our clinic to undergo intra-articular facet injections. At this time, the patient is experiencing no axial back pain issues that would be consistent with facet arthropathy pain. We have discussed with the patient that we will contact Dr. Booth's office directly to determine the reasoning for the request of intra-articular facet injections. There is a possibility that he is being considered for an ALIF procedure, which would require facet injections to determine whether or not the patient can tolerate this procedure as it does tend to load the facet joints after the ALIF procedure, improving the lumbar radicular symptoms, but it may exacerbate any underlying facet arthropathy pain. I wish to confirm this with the neurosurgery team before I have the patient undergo a procedure in an area that his pain is not present. We will take the liberty of contacting Dr. Booth's office for the patient and will keep him apprised of the proposed treatment options. 2. We have agreed to continue the patient on opioid medication. We will move from hydrocodone to an oxycodone as he is not experiencing good and prolonged benefit. He returns for this adjustment in medication management today. I have given the patient oxycodone 5 mg 1 tab p.o. t.i.d. #60 tablets. He is to watch for side effects of sleepiness, disorientation, confusion, mental slowing with use of medication. 3. We have taken the liberty of reviewing the patient's PDMP. He has not received opioid medications from any other physician. 4. We will see the patient back in followup visit in 1 month for medication management. We will contact him by phone once we have had a chance to discuss his case with Dr. Booth in regards to possible surgical options and requested [facility] [address] [place] [address] PAIN MANAGEMENT CONSULTATION Name: MIRTHA MINOR Room #: REG LEA Piper#: [id number] Admission: 05/18/19 Attend Phys: Talon Gomez DO Discharge: Date of : 87 Report #: [id number] treatment courses if necessary to confirm whether or not the patient would do well with an ALIF if this is the procedure proposed. <ELECTRONICALLY SIGNED> By: Talon Gomez DO 05/25/19 1248 [id number] 2045 Talon Gomez DO /nt
== END ==
LOC: PAIN 06:48
DX: M51.16 Intervertebral disc disorders with radiculopathy, lumbar region (principal); M47.27 Other spondylosis with radiculopathy, lumbosacral region; G89.4 Chronic pain syndrome; Z79.899 Other long term (current) drug therapy

== ENCOUNTER → 2019-06-02 | Outpatient (CLI) | payer BC, OTHER ==
[~2019-06-02] VITALS: Ht 175.3 cm; Wt 110.2 kg
--- NOTE | ~2019-06-02 | HPC ---
[facility] [place] [address] PAIN MANAGEMENT CONSULTATION Name: MIRTHA IMNOR Room #: REG [facility] M..#: [id number] Admission: 06/02/19 Attend Phys: Talon Gomez DO Discharge: Date of : 86 Report #: [id number] THIS REPORT FOR: //name// CC: Talon Aguilar MD DATE OF SERVICE: 06/02/2019 CHIEF COMPLAINT: Low back pain, bilateral lower extremity pain with paresthesias. HISTORY OF PRESENT ILLNESS: As you know, the patient is a pleasant 33-year-old male returning in followup visit per the request of his neurosurgeon to undergo bilateral L5-S1 para-facet injections to determine if his pain will be alleviated with such procedures. He is being considered for surgical options and further information is necessary to determine if the patient will see improvement in symptoms with more aggressive therapy. He returns per the request of his neurosurgeon to trial this type of injection. ALLERGIES: NO REPORTED DRUG ALLERGIES. CURRENT MEDICATIONS: Hydrocodone 5/325 one tab every 8 hours p.r.n. for pain. SOCIAL HISTORY: The patient reports himself a nonsmoker. Denies IV or illicit drug use. Admits to approximately 3 alcoholic beverages per week. 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 He is unaccompanied today. IMAGING: No new imaging available. PHYSICAL EXAMINATION: VITAL SIGNS: Blood pressure 165/93, pulse of 91, respiratory rate 18 and unlabored. The patient is 99% on room air. Height 5 feet 9 inches tall, weight 243 pounds, BMI calculated 35.9. GENERAL: Well-developed, well-nourished, well-hydrated exogenously obese 33-year-old male appearing stated age, placing current pain score at 4-5/10. HEENT: Normocephalic, atraumatic. Pupils equal, round, reactive to light. EXTREMITIES: Show no clubbing, no cyanosis, no edema. MUSCULOSKELETAL: Lower extremity strength equal and symmetrical 5/5. Muscle bulk and tone equal and symmetrical in comparing left lower extremity to right. Deep tendon reflexes are 2+/4 patella and Achilles. Ankle clonus negative. Babinski is negative. Gait is steady. Seated straight leg raising negative. Supine straight leg raising mildly positive. Dulce Maria test negative. Modified Gaenslen's positive for axial low back pain. [facility] [address] [place] [address] PAIN MANAGEMENT CONSULTATION Name: MIRTHA MINOR Room #: REG CLI [facility]#: [id number] Admission: 06/02/19 Attend Phys: Talon Gomez DO Discharge: Date of : 86 Report #: [id number] ASSESSMENT: 1. Facet arthropathy. 2. Spondylolisthesis of L5 on S1. 3. Lumbar radicular symptoms. 4. Chronic intractable pain. PLAN: 1. The patient has returned today in followup visit per the request of his neurosurgery team to undergo L5-S1 bilateral periarticular facet injections. They are considering the possibility the patient's symptoms are related to his spondylolisthesis at the L5-S1 level. They wished us to provide these injections to determine if his symptoms do improve and if so for how long with more conservative treatment. If he does receive improvement in symptoms, but it is transient in nature, surgical options are being entertained. He has been referred back to our clinic to trial this injection. The patient was advised risks and benefits of this type of injection. These risks include but are not necessarily limited to bleeding, bruising, infection, worsening pain, no relief of pain, also risk of temporary or permanent muscle weakness, temporary or permanent nerve damage, possible paralysis and . The patient states understood and wished to proceed. 2. The patient has requested an alteration in his medication. He is hopeful to see less side effects that he has been seeing with the oxycodone and hydrocodone. We will trial Suboxone on this patient giving a 2 mg dose 1 tab p.o. t.i.d. I have given the patient #90 tablets. This is for chronic pain. The patient was advised to watch for side effects of sleepiness, disorientation, confusion, mental slowing. If he notes any side effects, contact our clinic after discontinuing the medication. 3. We will see the patient back in followup visit on an as needed basis. DESCRIPTION OF PROCEDURE: Bilateral L5-S1 periarticular facet injections under fluoroscopy. After obtaining written consent, the patient was taken back to fluoroscopy suite, placed in prone position with pillow under abdomen to decrease lumbar lordosis. Skin overlying the lumbosacral area then prepped and draped in aseptic fashion. The bilateral L5-S1 facets were identified radiographically directly adjacent to the superior articular process of the S1 vertebrae. The areas were marked with sterile marker and the area overlying this was then prepped and draped in aseptic fashion using chlorhexidine and anesthetized with 2 mL of 1% lidocaine over each site. A 20-gauge 3-1/2 inch spinal needle with bent tip was advanced towards the L5-S1 facets bilaterally. [place] were advanced until reaching just the superior [address] [address] PAIN MANAGEMENT CONSULTATION Name: MIRTHA MINOR Room #: REG LEA Piper#: [id number] Admission: 06/02/19 Attend Phys: Talon oGmez DO Discharge: Date of : 86 Report #: [id number] aspect of the facet joints. [place] were then retracted approximately 1 mm and aspiration noted to be negative for heme. After negative aspiration for heme, 0.2 mL of isovue injected at each site demonstrating excellent spread over the area of the neurosurgeon's requested our injections to be placed. After negative aspiration for heme, 2 mL of a solution containing 40 mg per mL, 40 mg total triamcinolone and bupivacaine 0.5% was injected over each site. Each needle was retracted half way, flushed with 1 mL of 1% lidocaine and removed. Sterile bandage placed over injection site. There were no new motor deficits present in the lower extremities following procedure. The patient tolerated procedure well, carefully escorted to recovery room in stable condition. No apparent complications. After meeting discharge criteria, the patient discharged home. By: 1301 1550 Talon Gomez DO /nt
[2019-06-02 07:58] VITALS: BP 165/93
--- NOTE | 2019-06-02 08:04 | NUR ---
Pain Clinic Assessment: 1. History of Osteoarthritis: Not Applicable History of Rheumatoid Arthritis: Not Applicable 2. Height: 5 ft. 9 in. 175.3 cm. Weight: 243.0 lb. oz. 110.224 kg. Patient's BMI: 35.9 3. Vital Signs: BP: 165/93 Pulse: 91 Resp: 18 Temp: 02 Sat: 99 ECG Mon: 4. Pain Intensity: 4-5 5. Fall Risk: Dizziness: N Needs help standing or walking: N Fallen in the last 3 months: Y Fall risk comments: 6. Patient on Blood Thinner: None 7. History of Hypertension: N 8. Opioid Therapy greater than 6 weeks: N Opiate Contract Signed: 9. Risk Assessment Tool Provided: 0-low 10. Functional Assessment Tool: 11. Recreational Drug Use: Never Drug Type: Tobacco Use: Never Smoker Tobacco Type: Amount or Packs/day: How Many Years: Alcohol Use: Yes Frequency: Weekly Quant: 3
== END | disposition home or self-care (01) ==
LOC: PAIN 06:50
DX: M54.5 Low back pain (principal); M47.816 Spondylosis without myelopathy or radiculopathy, lumbar region; M43.17 Spondylolisthesis, lumbosacral region; M54.16 Radiculopathy, lumbar region; G89.29 Other chronic pain; Z98.890 Other specified postprocedural states; Z79.899 Other long term (current) drug therapy; Z79.891 Long term (current) use of opiate analgesic

== ENCOUNTER → 2019-06-29 | Outpatient (CLI) | payer BC, OTHER ==
[~2019-06-29] VITALS: Ht 175.3 cm; Wt 109.9 kg
[~2019-06-29] MED LIST changes: +PERCOCET 7.5-31 EAC1 PO
[2019-06-29 09:17] VITALS: BP 141/96
--- NOTE | 2019-06-29 09:22 | NUR ---
Pain Clinic Assessment: 1. History of Osteoarthritis: Not Applicable History of Rheumatoid Arthritis: Not Applicable 2. Height: 5 ft. 9 in. 175.3 cm. Weight: 242.2 lb. oz. 109.861 kg. Patient's BMI: 35.8 3. Vital Signs: BP: 141/96 Pulse: 67 Resp: 16 Temp: 02 Sat: 99 ECG Mon: 4. Pain Intensity: 4 5. Fall Risk: Dizziness: N Needs help standing or walking: N Fallen in the last 3 months: N Fall risk comments: 6. Patient on Blood Thinner: None 7. History of Hypertension: N 8. Opioid Therapy greater than 6 weeks: N Opiate Contract Signed: 9. Risk Assessment Tool Provided: 0-low 10. Functional Assessment Tool: 44/ 11. Recreational Drug Use: Never Drug Type: Tobacco Use: Never Smoker Tobacco Type: Amount or Packs/day: How Many Years: Alcohol Use: Yes Frequency: Weekly Quant: 1
--- NOTE | 2019-07-06 12:14 | HPC ---
[address] [address] PAIN MANAGEMENT CONSULTATION Name: MIRTHA MINOR Room #: REG [facility] M.R.#: [id number] Admission: 06/29/19 Attend Phys: Talon Gomez DO Discharge: Date of : 86 Report #: [id number] THIS REPORT FOR: //name// CC: Talon Aguilar MD DATE OF SERVICE: 06/29/2019 CHIEF COMPLAINT: Low back pain, bilateral lower extremity pain with paresthesias. HISTORY OF PRESENT ILLNESS: As you know, the patient is a pleasant 34-year-old male returning in followup visit having undergone various treatment options to address low back pain and bilateral lower extremity pain. The patient was last referred back to our clinic to undergo intra-articular facet injections to address potential facet arthropathy pains. The patient reports no improvement whatsoever with the injection other than the transient improvement in symptoms noted with local anesthetic. The patient continues to experience lumbar radicular symptoms in classic distribution. He returns today in followup visit indicating he is considering surgical options once again, though his visit with Neurosurgery indicates that he is not a candidate at this time. He is also considering the possibility of spinal cord stimulator, we discussed in the past. He returns to discuss those options today. The patient denies new injury, new trauma that may have led to symptom recurrence. ALLERGIES: No reported drug allergies. CURRENT MEDICATIONS: Hydrocodone 5/325 mg dose 1 tab p.o. q. 8 hours p.r.n. for pain. SOCIAL HISTORY: The patient reports he is a nonsmoker. Denies IV or illicit drug use. Admits to 3 alcoholic beverages per week. 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 He is unaccompanied today. IMAGING: No new imaging available. PHYSICAL EXAMINATION: VITAL SIGNS: Blood pressure 141/96, pulse 67, respiratory rate 16 and unlabored, the patient is 99% on room air. Height 5 feet 9 inches tall, weight 242.2 pounds, BMI calculated 35.8. GENERAL: Well-developed, well-nourished, well-hydrated 34-year-old male appearing stated age, pain is rated around 4/10. HEENT: Normocephalic, atraumatic. Pupils equal, round, reactive to light. EXTREMITIES: Show no clubbing, no cyanosis, and no edema. [facility] [address] [place] [address] PAIN MANAGEMENT CONSULTATION Name: MIRTHA MINOR Room #: REG LEA PerezMundo#: [id number] Admission: 06/29/19 Attend Phys: Talon Gomez DO Discharge: Date of : 86 Report #: [id number] MUSCULOSKELETAL: Lower extremity strength remains symmetrical again today 5/5. Deep tendon reflexes are 2+/4 at patella and Achilles. Ankle clonus negative. Gait is steady. Seated straight leg raising negative. Supine straight leg raising mildly positive. Dulce Maria's test negative. Modified Gaenslen's positive for axial low back pain. Ankle clonus negative. Lumbar provocation testing is met with increasing pain mainly with extension and rotation. ASSESSMENT: 1. Chronic lumbar radiculopathy. 2. Spondylolisthesis of L5 on S1. 3. Facet arthropathy of the lumbar spine. 4. Chronic intractable pain. PLAN: 1. The patient returns today in followup visit indicating no improvement with the intra-articular facet injections. We reviewed the imaging from that procedure and it is obvious by the imaging that definitively in the facets and the facet arthrograms were appropriate. Unfortunately, he did not notice improvement in symptoms. This is not the source of the patient's pain. We discussed that the other treatment course for chronic lumbar radiculopathy, unresponsive to epidural injections would be either surgical options whether this be a spinal cord stimulator or traditional surgical options. The patient is considering both. He wishes to discuss further the spinal cord stimulator as an option that we provide as well as requesting a possible referral to Neurosurgery to discuss his case with another surgeon as a second opinion. 2. The patient will be sent to be evaluated by Neurosurgery for a second opinion. I have provided the patient with information today to follow up with a neurosurgeon to discuss his case. He will follow up with them as quickly as possible. I advised the patient to take any paperwork he may have and recent MRIs. 3. The patient was given information in regards to spinal cord stimulator. He was given both in written and digital form. The patient will review this at his earliest convenience. If he does wish to move forward with this type of treatment, he is to contact our clinic, so that we are made aware that he is going to be following up with Psychiatry. If a psychiatric evaluation is necessary, I have provided the patient with paperwork to make that appointment. If the patient does choose to move forward with this, he will contact our clinic, so that we are aware that he is undergoing the psychiatric evaluation, we can watch for the paperwork. 4. We have agreed to increase the patient's hydrocodone from 5/325 to 7.5/325 and this is a 50% increase in his dosing. I have provided the patient with hydrocodone 7.5/325, #90 tablets with no refills. The patient was advised to take the medication as directed. He is not to utilize the medication prophylactically. I did give the patient a second prescription to release in 4 weeks for a 2-month medication management. 5. The patient will contact our clinic if he wishes to move forward with a [facility] [address] [place] [address] PAIN MANAGEMENT CONSULTATION Name: MIRTHA MINOR Room #: REG CLRogerio Piper#: [id number] Admission: 06/29/19 Attend Phys: Talon Gomez DO Discharge: Date of : 87 Report #: [id number] spinal cord stimulator trial. He will also contact our clinic after he has discussed his case with the second opinion neurosurgeon. <ELECTRONICALLY SIGNED> By: Talon Gomez DO 07/06/19 1214 [id number] Talon Gomez DO /nt
== END ==
LOC: PAIN 06:37
DX: M43.17 Spondylolisthesis, lumbosacral region (principal); M12.88 Other specific arthropathies, not elsewhere classified, other specified site; G89.4 Chronic pain syndrome; M54.16 Radiculopathy, lumbar region

== ENCOUNTER → 2020-09-06 | Outpatient (CLI) | payer BC | LOC: SJCVCIMAG 08:17 | PROVIDERS: ATTEND Internal Medicine Cardiovascular Disease | DX: R07.9 Chest pain, unspecified (principal) ==

== ENCOUNTER → 2021-04-25 | Outpatient (CLI) | payer BC ==
[~2021-04-25] VITALS: Ht 177.8 cm; Wt 113.4 kg
[~2021-04-25] MED LIST changes: +RELAFEN500 M1 PO
[2021-04-25 08:04] VITALS: BP 158/86
--- NOTE | 2021-04-25 08:09 | NUR ---
Pain Clinic Assessment: 1. History of Osteoarthritis: Not Applicable History of Rheumatoid Arthritis: Not Applicable 2. Height: 5 ft. 10 in. 177.8 cm. Weight: 250.0 lb. oz. 113.400 kg. Patient's BMI: 35.9 3. Vital Signs: BP: 158/86 Pulse: 65 Resp: 16 Temp: 02 Sat: 100 ECG Mon: 4. Pain Intensity: 5 5. Fall Risk: Dizziness: N Needs help standing or walking: N Fallen in the last 3 months: N Fall risk comments: 6. Patient on Blood Thinner: None 7. History of Hypertension: N 8. Opioid Therapy greater than 6 weeks: N Opiate Contract Signed: 9. Risk Assessment Tool Provided: 0-low 10. Functional Assessment Tool: 11. Recreational Drug Use: Never Drug Type: Tobacco Use: Never Smoker Tobacco Type: Amount or Packs/day: How Many Years: Alcohol Use: Yes Frequency: Weekly Quant: 4-5
--- NOTE | 2021-05-01 09:13 | HPC ---
[facility] [address] [place] [address] PAIN MANAGEMENT CONSULTATION Name: MIRTHA MINOR Room #: REG LEA MotleyMundoMaggie.#: [id number] Admission: 04/25/21 Attend Phys: Talon Gomez DO Discharge: Date of : 86 Report #: [id number] THIS REPORT FOR: cc: Talon Hicks James A. DO Johnson, James E. DO ~ cc: Talon Hicks DO DATE OF SERVICE: 04/25/2021 CHIEF COMPLAINT: Low back pain, bilateral upper buttock pain. HISTORY OF PRESENT ILLNESS: As you know, the patient is a very pleasant 35-year-old male returning in followup visit with continued axial back pain and upper buttock pain. The patient, as you are aware, has been treated conservatively through our clinic per the request of his neurosurgeon undergoing intra-articular facet injections with benefit, but unfortunately those benefits were short-lived. He has been lost followup visit since 06/2019. He returns today in followup visit stating he is continuing to experience back pain for which he places pain at a level of 5/10. He has sought further evaluation through Neurosurgery and they have advised the patient no surgical options at this time given his young age. He reports pain is exacerbated with walking and sitting and improved with lying down, medications and use of an inversion table consistent with facet arthropathy pain. He returns today in followup visit to discuss interventional treatment options to address axial back pain. ALLERGIES: No known drug allergies. CURRENT MEDICATIONS: Oxycodone/acetaminophen 7.5/325 one tab p.o. q.8 hours p.r.n. pain. SOCIAL HISTORY: The patient reports he is a nonsmoker. Denies IV or illicit drug use. Admits to approximately 3 alcohol beverages per week. 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 IMAGING: No new imaging available. PHYSICAL EXAMINATION: VITAL SIGNS: Blood pressure 158/86, pulse 65, respiratory rate 16 and unlabored. The patient 100% on room air. Height 5 feet 10 inches tall, weight 250 pounds, BMI calculated 35.9. GENERAL: Well-developed, well-nourished, well-hydrated 35-year-old male appearing stated age, pain is rated at around 5/10. HEENT: Normocephalic, atraumatic. Pupils equal, round and responsive. He is wearing a mask in compliance with COVID-19 regulations per the hospital recommendations. EXTREMITIES: Show no clubbing, no cyanosis, [place] [address] PAIN MANAGEMENT CONSULTATION Name: MIRTHA MINOR [facility] [id number] Admission: 04/25/21 Attend Phys: Talon Gomez DO Discharge: Date of : 86 Report #: [id number] MUSCULOSKELETAL: Lower extremity strength equal and symmetrical 5/5 intact to light touch from L1 through S2 dermatomes. Ankle clonus negative. Babinski is negative. Seated straight leg raising negative. Supine straight leg raising negative. Modified Gaenslen's positive for axial low back pain without radiation of symptoms. Lumbar provocation testing including extension, rotation, lateral flexion all intensify axial back symptoms. Pain is mildly improved with forward flexion of approximately 10 degrees. ASSESSMENT: 1. Lumbosacral spondylosis without radiculopathy. 2. Spondylolisthesis of L5 on S1. 3. Facet arthropathy of lumbar spine. 4. Chronic intractable pain. PLAN: 1. Based on today's physical exam and history the patient has provided, the description the patient uses in regards to pain as well as the location of symptoms, it would appear he is suffering from facet arthropathy pain. The patient, as you are aware, has changes at the L5-S1 level, which might ultimately need to have surgical stabilization, but given his use there is concern of a fusion this early in life, requiring further fusion at the level above within 5-7 years. The patient has been referred back to our clinic to discuss treatment options, the imaging that the patient has is dated, but does show changes of facet arthropathy at the L4-L5 and L5-S1 level, which would correlate to the patient's current symptomatology. We discussed with the patient the treatment options for facet arthropathy pain today with the following was discussed with the patient. We discussed physical therapy, stretching exercises and core strengthening techniques as a treatment approach. We discussed suggestions and medication management, adding a nonsteroidal anti-inflammatory to his current list of therapies. We discussed medial branch nerve blocks and radiofrequency lesioning as a treatment approach and then ultimately the surgical options that have been discussed in the past. After reviewing the risks and benefits of all proposed treatment options, the patient chose to move forward with medial branch nerve blocks with plans to move towards radiofrequency lesioning, if successful. 2. The patient has been advised risks and benefits of medial branch nerve blocks. These risks include but are not necessarily limited to bleeding, bruising, infection, worsening pain, no relief of pain, also risk of temporary or permanent muscle weakness, temporary or permanent nerve damage, possible paralysis, post-dural puncture headache and . The patient states understood and wished to proceed. 3. To the patient's current medication list, we will be adding Relafen 500 mg dose 1 tab p.o. t.i.d. I have given the patient #90 tablets. I advised the patient to watch for side effects of dyspepsia, worsening of blood pressure, lower extremity edema with use. If he notes no side effects and improvement, he [address] [address] PAIN MANAGEMENT CONSULTATION Name: MIRTHA MINOR Room #: REG LEA Perez.#: [id number] Admission: 04/25/21 Attend Phys: Talon Gomez DO Discharge: Date of : 86 Report #: [id number] will continue the medication as directed. Prescription was sent via [email or web address] local pharmacy. 4. Plan to see the patient back in followup visit in 2 weeks. At that time, review the efficacy of the medial branch nerve blocks provided today. If the patient notes excellent improvement in symptoms for prescribed amount of time, we would then repeat medial branch blocks. If those then are also successful alleviating his typical pain, we would then move forward with radiofrequency lesioning. PROCEDURE NOTE: DESCRIPTION OF PROCEDURE: Bilateral L3, L4, L5 medial branch nerve blocks under fluoroscopic guidance. After obtaining written consent, the patient was taken back to fluoroscopy suite, placed in prone position with pillow under abdomen to decrease lumbar lordosis. Skin overlying lumbosacral area then prepped and draped in aseptic fashion. The L4 transverse process corresponding the L3 medial branch nerve and the L5 transverse process corresponding the L4 medial branch nerve were visualized bilaterally. Skin and subcutaneous tissue overlying each of the target sites of injection were anesthetized with 2 mL of preservative-free 1% lidocaine utilizing a 27-gauge 1-1/4-inch needle. Next for 22-gauge 3-1/2 inch spinal needles with bent tips were advanced under fluoroscopic guidance using a superior, inferior, lateral to medial approach to the dorsal, superior and medial aspect of the base of transverse processes. [place] were then rearranged to reach the target locations. Oblique view facilitated needle placement with properly positioned needles within the middle of the "eye" of the Ramirez dog. At each site, needles rested on periosteum. After negative aspiration for heme or cerebrospinal fluid, 1 mL of bupivacaine 0.5% was injected slowly. This was done at each site. This was done to avoid forcing the solution away from the target point. [place] were then removed. The L5 dorsal ramus block both on the left and right side was performed using a slightly oblique approach under fluoroscopic guidance, placing the needle within the groove between the sacral ala and the superior articular process of S1. Needle rested on periosteum. After negative aspiration for heme or cerebrospinal fluid, 1 mL of bupivacaine 0.5% was injected slowly at each of the target locations. [place] were then removed. Sterile bandage placed over injection site. The patient tolerated the procedure well, carefully escorted to recovery room in stable condition. No apparent complications. VAS before procedure rated at [facility] [address] [place] [address] PAIN MANAGEMENT CONSULTATION Name: MIRTHA MINOR Room #: REG LEA Piper#: [id number] Admission: 04/25/21 Attend Phys: Talon Gomez DO Discharge: Date of : 86 Report #: [id number] 5/10, VAS 10 minutes after procedure rated at 1/10. After meeting our discharge criteria, the patient discharged home. <ELECTRONICALLY SIGNED> By: Talon Gomez DO 05/01/2113 1035 41 Talon Gomez DO /nt
== END | disposition home or self-care (01) ==
LOC: PAIN 06:47
PROVIDERS: ATTEND Anesthesiology Pain Medicine
DX: M47.817 Spondylosis without myelopathy or radiculopathy, lumbosacral region (principal); M47.816 Spondylosis without myelopathy or radiculopathy, lumbar region; G89.29 Other chronic pain; M43.17 Spondylolisthesis, lumbosacral region; Z98.890 Other specified postprocedural states; Z79.899 Other long term (current) drug therapy; Z79.891 Long term (current) use of opiate analgesic; Z88.8 Allergy status to other drugs, medicaments and biological substances

== ENCOUNTER → 2021-05-09 | Outpatient (CLI) | payer BC ==
[~2021-05-09] VITALS: Ht 177.8 cm; Wt 112.8 kg
--- NOTE | ~2021-05-09 | HPC ---
[facility] [address] [place] [address] PAIN MANAGEMENT CONSULTATION Name: MIRTHA MINOR Room #: REG [facility]..#: [id number] Admission: 05/09/21 Attend Phys: Talon Gomez DO Discharge: Date of : 86 Report #: [id number] THIS REPORT FOR: cc: Talon Hicks James A. DO Johnson, James E. DO ~ cc: Talon Hicks DO DATE OF SERVICE: 05/09/2021 CHIEF COMPLAINT: Low back pain, bilateral upper buttock pain. HISTORY OF PRESENT ILLNESS: As you know, the patient is a pleasant 35-year-old male returning in followup visit having undergone medial branch blocks at our last visit. He reports improvement in symptoms of greater than 80% with reduction of pain from a 6/10 to 1/10, lasting for 5 hours with recurrence of symptoms occurring soon after consistent with the bupivacaine 0.5% used for our medial branch blocks. He returns today in followup visit reporting a pain score of 3/10 to undergo second in the series of medial branch blocks. If these are then successful at alleviating symptoms for prescribed amount of time, we would then look forward to radiofrequency lesioning of medial branch nerves of the lumbar spine. He returns today for the second in the series of medial branch blocks under fluoroscopic guidance. ALLERGIES: No known drug allergies. CURRENT MEDICATIONS: Percocet 7.5/325 one tab every 8 hours p.r.n. pain. SOCIAL HISTORY: The patient reports himself as a nonsmoker. Denies IV or illicit drug use. Admits approximately 3 alcohol beverages per week. 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 IMAGING: No new imaging available. PHYSICAL EXAMINATION: VITAL SIGNS: Blood pressure 135/84, pulse 60, respiratory rate 14 and unlabored. The patient 98% on room air. Height 5 feet 10 inches tall, weight 248.6 pounds, BMI calculated 35.7. GENERAL: Well-developed, well-nourished, well-hydrated 35-year-old male appearing stated age. He is placing current pain score 3/10. HEENT: Normocephalic, atraumatic. Pupils are round. He is wearing a mask in compliance with COVID-19 regulations. EXTREMITIES: Show no clubbing, no cyanosis. No appreciable edema. MUSCULOSKELETAL: Lower extremity strength equal and symmetrical 5/5, intact to light touch from L1 through S2 dermatomes. Straight leg raising is negative, both in the seated and supine positions. Lumbar provocation testing including extension, rotation, lateral flexion all intensify axial back pain, right [address] [address] PAIN MANAGEMENT CONSULTATION Name: IVÁNMIRTHA [facility] [id number] Admission: 05/09/21 Attend Phys: Talon Gomez DO Discharge: Date of : 86 Report #: [id number] greater than left. This is located over the lower lumbar spine. ASSESSMENT: 1. Lumbosacral spondylosis without radiculopathy or myelopathy. 2. Spondylolisthesis of L5 on S1. 3. Facet arthropathy of lumbar spine. 4. Lumbar degeneration. 5. Chronic intractable pain. PLAN: 1. The patient has returned today in followup visit having noted greater than 80% improvement in overall pain with the medial branch blocks provided at our last visit. This lasted for several hours. The patient was set at 1/10 pain level, reduced from a 6/10 from 9:00 until 12:00; at 1:00, his pain intensified to 2/10 and then by 2:00, pain was at 3/10. Pain returned to 6/10 at about 3:34. This is consistent with the use of bupivacaine 0.5%. This was a successful medial branch nerve block procedure. He returns today for the second in the series. The patient was advised if this once again improved his symptoms for prescribed amount of time, he would then be a candidate for medial branch radiofrequency lesioning, which we would start on the right side as this has been the most problematic side for the patient. The patient is agreeable with plan. He is here today to undergo medial branch block #2 under fluoroscopic guidance. The patient has been advised risks and benefits of the procedure, states he understood and wished to proceed. 2. No medication changes made at today's visit. The patient will continue current medical therapy as prior prescribed. 3. We plan to see the patient back in followup visit in 2 weeks for radiofrequency lesioning of medial branch nerves on the right side addressing the right L3, L4, L5 medial branch nerves. PROCEDURE NOTE DESCRIPTION OF PROCEDURE: Bilateral L3, L4, L5, lumbar medial branch nerve blocks under fluoroscopic guidance. After obtaining written consent, the patient was taken back to fluoroscopy suite, placed in prone position with pillow under abdomen to decrease lumbar lordosis. Skin overlying lumbosacral area then prepped and draped in aseptic fashion. The L4 transverse process corresponding the L3 medial branch nerve and the L5 transverse process corresponding the L4 medial branch nerve were visualized bilaterally. Skin and subcutaneous tissue overlying target sites of injections were then anesthetized with 1 mL of preservative-free 1% lidocaine utilizing a 27-gauge 1-1/4-inch needle. [address] [place] [address] PAIN MANAGEMENT CONSULTATION Name: MIRTHA MINOR Room #: REG [facility].#: [id number] Admission: 05/09/21 Attend Phys: Talon Gomez DO Discharge: Date of : 86 Report #: [id number] Four 22-gauge 3-1/2 inch spinal needles with bent tips were advanced under fluoroscopic guidance using a superior, inferior, lateral to medial approach to the dorsal, superior and medial aspect to the base of transverse processes. [place] were then arranged to reach the target locations. Oblique view facilitated needle placement with properly positioned needles within the middle of the "eye" of the Ramirez dog. At each site, needles rested on periosteum. After negative aspiration for heme or cerebrospinal fluid, 1 mL of lidocaine 2% with epinephrine was injected slowly. This was done at all 4 sites. [place] were then retracted senior care, flushed with 0.25 mL of lidocaine 1% and then removed. The L5 dorsal ramus block, both on the left and right side, was performed using a slightly oblique approach under fluoroscopic guidance, placing the needle within the groove between the sacral ala and the superior articular process of S1. Needle rested on periosteum. After negative aspiration for heme or cerebrospinal fluid, 1 mL of lidocaine 2% with epinephrine was injected slowly at each of the target locations. [place] were then retracted senior care, flushed with 0.25 mL of lidocaine 1% and then removed. Sterile bandage placed over injection site. The patient tolerated the procedure well, carefully escorted to recovery room in stable condition. After meeting our discharge criteria, the patient discharged home. By: 0845 1035 Talon Gomez DO /nt
[2021-05-09 08:04] VITALS: BP 135/84
--- NOTE | 2021-05-09 08:15 | NUR ---
Pain Clinic Assessment: 1. History of Osteoarthritis: Not Applicable History of Rheumatoid Arthritis: Not Applicable 2. Height: 5 ft. 10 in. 177.8 cm. Weight: 248.6 lb. oz. 112.764 kg. Patient's BMI: 35.7 3. Vital Signs: BP: 135/84 Pulse: 60 Resp: 14 Temp: 02 Sat: 98 ECG Mon: 4. Pain Intensity: 3 5. Fall Risk: Dizziness: N Needs help standing or walking: N Fallen in the last 3 months: N Fall risk comments: 6. Patient on Blood Thinner: None 7. History of Hypertension: N 8. Opioid Therapy greater than 6 weeks: N Opiate Contract Signed: 9. Risk Assessment Tool Provided: 0-low 10. Functional Assessment Tool: 44 11. Recreational Drug Use: Never Drug Type: Tobacco Use: Never Smoker Tobacco Type: Amount or Packs/day: How Many Years: Alcohol Use: Yes Frequency: Quant:
== END | disposition home or self-care (01) ==
LOC: PAIN 06:40
PROVIDERS: ATTEND Anesthesiology Pain Medicine
DX: M47.817 Spondylosis without myelopathy or radiculopathy, lumbosacral region (principal); M47.26 Other spondylosis with radiculopathy, lumbar region; M43.16 Spondylolisthesis, lumbar region; M51.36 Other intervertebral disc degeneration, lumbar region; G89.29 Other chronic pain; Z98.890 Other specified postprocedural states; Z79.899 Other long term (current) drug therapy; Z88.8 Allergy status to other drugs, medicaments and biological substances